=== PATIENT | female | born 1995 | race African-American/Black ===

== ENCOUNTER 2020-01-24 10:31 | Emergency (ER) | payer BC, MEDICAID ==
[~2020-01-24] VITALS: Ht 160 cm; Wt 58.1 kg
[2020-01-24] MEDS ORDERED: diphenhydrAMINE 25 MG CAP PO ONE (10:43)
[2020-01-24] MEDS ORDERED: FAMOTIDINE 20 MG TABLET ONE (10:44)
[2020-01-24] MEDS ORDERED: predniSONE 50 MG TABLET ONE (10:44)
[2020-01-24] MEDS ORDERED: FAMOTIDINE 20 MG TABLET PO ONE (11:00)
[2020-01-24] MEDS ORDERED: diphenhydrAMINE 50 MG CAPSULE PO ONE (11:00)
[2020-01-24] MEDS ORDERED: predniSONE 10 MG TABLET PO ONE (11:00)
--- NOTE | 2020-01-24 11:03 | NUR ---
PATIENT SEEN BY . STATES SHE HAS ALLERGY TO ALEC ANDACCIDENTLY CONSUMED SOME IN A DRINK AND FEELS DISCONFORT IN HER THROAT. SHE IS MOVING AIR WELL, DENIES SOB. PLACED ON A MONITOR. NO SWELLIN IN FACE OR MOUTH NOTED. MEDICATIONS GIVEN ORDERED.
--- NOTE | 2020-01-24 12:11 | NUR ---
Patient discharged to home in stable condition. Written and verbal after care instructions given. Patient verbalizes understanding of instructions. Stressed follow up or return to ER for worsening s/s. pt says feels better, deneis any distress, sob and swollen throat. pt walks in steady gait.
[2020-01-24 12:12] VITALS: BP 121/77
== END 2020-01-24 12:13 | disposition home or self-care (01) ==
LOC: ER 10:31
DX: T78.1XXA Other adverse food reactions, not elsewhere classified, initial encounter (principal); L53.9 Erythematous condition, unspecified; R11.0 Nausea; K58.9 Irritable bowel syndrome, unspecified; Z91.018 Allergy to other foods
CPT/HCPCS: 99284; J7512; Q0163; A4663